=== PATIENT | female | born 1955 | race Caucasian/White ===

== ENCOUNTER → 2022-02-03 | Outpatient (CLI) | payer OTHER ==
--- NOTE | 2022-02-03 11:59 | KCIC ---
RS Compliance Statement: One or more of the following individualized dose reduction techniques were utilized for this examinat ion: 1. Automated exposure control 2. Adjustment of the mA and/or kV according to patient size 3. Use of iterative reconstruction technique Coronary calcium score CT chest without contrast History: Cardiovascular screening, mixed hyperlipidemia. Technique: With retrospective electrocardiogram gating axial reconstructed noncontrast images of the chest at the level of the coronary arteries was performed. Images were post processed on workstation and calcium score calculated using the modified Agatston Janowitz protocol. Findings: Total coronary calcium score is 883.4. This is an extensive plaque burden and high cardiova scular disease risk. This is based on the calcium score of 0 of the left main coronary artery, score of 715.5 of the left anterior descending artery, score of 91.4 of the left circumflex artery and sco re of 76.5 of the right coronary artery. Noncoronary findings demonstrate ectasia of the ascending thoracic aorta, diameter is 3.8 cm. Cardiac size is normal, no pericardial effusion. There is a cyst or hemangioma in the left hepatic lobe that is incompletely imaged, measures 3.1 cm. There is no pleural abnormality. 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 Visualized lungs are otherwise clear. IMPRESSION: Patient's total calcium score is 883.4. Electronically signed by: Lb Martinez MD (02/03/2022 11:57 AM) [id number]
== END ==
LOC: KCIC CT 09:35
PROVIDERS: ATTEND Family Medicine
DX: E78.2 Mixed hyperlipidemia (principal)
CPT/HCPCS: 75571